=== PATIENT | female | born 1965 | race Two or more races ===

== ENCOUNTER → 2019-09-05 | Day surgery (SDC) | payer MEDICAID ==
[2019-09-02 09:22] LABS: Urine WBC None Seen /hpf (0 - 5)
[2019-09-02 09:25] LABS: Basophils # (auto) 0 uL; Basophils % (auto) 0.9 % (0.0-2.0); Eosinophils # (auto) 0 uL; Eosinophils % (auto) 0.4 % (0.0-7.0); Hematocrit 42.8 % (36.0-46.0); Hemoglobin 14.7 g/dL (12.2-16.2); Lymphocytes # (auto) 1.2 uL; Lymphocytes % (auto) 22.7 % (10.0-50.0); Mean Corpuscular Hemoglobin 30.9 pg (28.0-32.0); Mean Corpuscular Hgb Conc. 34.4 g/dL (32.0-36.0); Mean Corpuscular Volume 89.8 fL (80.0-100.0); Monocytes # (auto) 0.2 uL; Monocytes % (auto) 4.3 % (0.0-12.0); Neutrophils # (auto) 3.9 uL; Neutrophils % (auto) 71.7 % (37.0-80.0); Platelet Count (auto) 266 10^3/uL (140-450); Red Blood Cells 4.77 10^6/uL (4.0-5.20); White Blood Cell 5.5 10^3/uL (4.4-10.8)
[2019-09-02 09:35] LABS: Urine Bacteria NONE SEEN /hpf (None Seen); Urine Blood 1+ /uL (Negative); Urine Specific Gravity 1.006 (1.001-1.035)
[2019-09-02 09:40] LABS: INR 1.01 (0.9-1.15)
[2019-09-02 10:13] LABS: Albumin 4.1 g/dL (3.4-5.0); Calcium 8.9 mg/dL (8.5-10.1); Potassium 4.1 mmol/L (3.5-5.1)
[2019-09-02 10:15] LABS: BUN/Creatinine Ratio 20.3
[2019-09-02 10:17] LABS: Bilirubin, Total 0.6 mg/dL (0.2-1.0); Total Protein 7.4 g/dL (6.4-8.2)
[~2019-09-05] VITALS: Ht 157.5 cm; Wt 72.6 kg
[~2019-09-05] MED LIST: ATOR10TA52 PO; CIPROFLOXACIN 400MG/200ML 200 ML IV ONE; HYDROmorphone HCL 2 MG/ML VL IV PRN; IOHEXOL 300 MG/ML 100ML BOTTLE IJ ONE; LEV50T PO; LIDOCAINE 1% HCL (LOCAL ANESTH.) INJ 20ML MDV ONE; METOCLOPRAMIDE HCL 5MG/ml INJ 2ml VIAL IV PRN; MIDAZOLAM HCL 1MG/1ML-2 ML VIAL ONE; MORPHINE SULFATE 4 MG/ML SYR/VIAL IV PRN; ONDANSETRON HCL 4 MG/2 ML VIAL IV ONE; PROPOFOL 10 MG/ML 20 ML IV ONE; fentaNYL CITRATE 100 MCG/2 ML VL IV PRN; fentaNYL CITRATE 100 MCG/2 ML VL ONE
[2019-09-05 09:05] VITALS: BP 130/73
== END | disposition home or self-care (01) ==
LOC: SUR 07:05
PROVIDERS: ATTEND Urology
DX: N20.0 Calculus of kidney (principal); E78.5 Hyperlipidemia, unspecified; E03.9 Hypothyroidism, unspecified; Z88.1 Allergy status to other antibiotic agents; Z87.891 Personal history of nicotine dependence; Z79.899 Other long term (current) drug therapy
CPT/HCPCS: 36415; 50590; 80053; 81001; 85025; 85610; 85730; 93005; J0744; J2001; J2250; J2405; J2704; J3010; J7030

== ENCOUNTER → 2019-12-19 | Day surgery (SDC) | payer MEDICAID ==
[2019-12-17 09:12] LABS: Basophils # (auto) 0 10 ^3/uL (0-0.2); Basophils % (auto) 0.7 % (0.0-2.0); Eosinophils # (auto) 0.1 10 ^3/uL (0-0.8); Hematocrit 44.2 % (36.0-46.0); Hemoglobin 14.8 g/dL (12.2-16.2); Lymphocytes % (auto) 26.6 % (10.0-50.0); Mean Corpuscular Hgb Conc. 33.4 g/dL (32.0-36.0); Mean Corpuscular Volume 89.9 fL (80.0-100.0); Monocytes # (auto) 0.4 10 ^3/uL (0-1.3); Monocytes % (auto) 5.6 % (0.0-12.0); Neutrophils # (auto) 4.8 10 ^3/uL (1.6-8.6); Neutrophils % (auto) 65.1 % (37.0-80.0); Platelet Count (auto) 258 10^3/uL (140-450); Red Blood Cells 4.91 10^6/uL (4.0-5.20); Red Cell Distribution Width 13.4 % (11.8-14.3); White Blood Cell 7.3 10^3/uL (4.4-10.8)
[2019-12-17 09:18] LABS: Urine Bacteria NONE SEEN /hpf (None Seen); Urine Blood 1+ /uL (Negative); Urine Mucus FEW (None Seen); Urine Specific Gravity 1.013 (1.001-1.035); Urine WBC 3 /hpf (0 - 5)
[2019-12-17 09:34] LABS: Partial Thromboplastin Time 25.8 sec (23.64-32.05)
[2019-12-17 09:37] LABS: Albumin 3.9 g/dL (3.4-5.0); Calcium 8.6 mg/dL (8.5-10.1); Potassium 3.8 mmol/L (3.5-5.1)
[2019-12-17 09:40] LABS: Bilirubin, Total 0.6 mg/dL (0.2-1.0); Total Protein 7.3 g/dL (6.4-8.2)
[~2019-12-19] VITALS: Ht 157.5 cm; Wt 72.6 kg
[~2019-12-19] MED LIST changes: -METOCLOPRAMIDE HCL 5MG/ml INJ 2ml VIAL IV PRN; +MORPHINE SULF INJ 2 MG/ML SYRINGE 1ML IV PRN; -MORPHINE SULFATE 4 MG/ML SYR/VIAL IV PRN; -ONDANSETRON HCL 4 MG/2 ML VIAL IV ONE; +ONDANSETRON HCL 4 MG/2 ML VIAL IV PRN; +ONDANSETRON HCL 4 MG/2 ML VIAL ONE; +SODIUM CHLORIDE LOCK 10 ML ONE; -fentaNYL CITRATE 100 MCG/2 ML VL IV PRN
[2019-12-19 14:27] VITALS: BP 124/73
== END | disposition home or self-care (01) ==
LOC: SUR 08:35
PROVIDERS: ATTEND Urology
DX: N20.0 Calculus of kidney (principal); E66.9 Obesity, unspecified; E07.9 Disorder of thyroid, unspecified; Z88.1 Allergy status to other antibiotic agents; Z68.29 Body mass index [BMI] 29.0-29.9, adult; Z98.890 Other specified postprocedural states; Z11.59 Encounter for screening for other viral diseases
CPT/HCPCS: 36415; 50590; 74176; 80053; 81001; 85025; 85610; 85730; J0744; J2001; J2250; J2405; J2704; J3010; Q9967; U0003

== ENCOUNTER → 2020-05-14 | Day surgery (SDC) | payer MEDICAID ==
[2020-05-07 12:35] LABS: Basophils # (auto) 0.1 10 ^3/uL (0-0.2); Basophils % (auto) 0.8 % (0.0-2.0); Eosinophils # (auto) 0.1 10 ^3/uL (0-0.8); Eosinophils % (auto) 0.7 % (0.0-7.0); Hematocrit 43.4 % (36.0-46.0); Hemoglobin 14.7 g/dL (12.2-16.2); Lymphocytes # (auto) 2.2 10 ^3/uL (0.4-5.4); Lymphocytes % (auto) 30.5 % (10.0-50.0); Mean Corpuscular Hemoglobin 30.8 pg (28.0-32.0); Mean Corpuscular Hgb Conc. 33.8 g/dL (32.0-36.0); Mean Corpuscular Volume 91.2 fL (80.0-100.0); Monocytes # (auto) 0.5 10 ^3/uL (0-1.3); Monocytes % (auto) 6.3 % (0.0-12.0); Neutrophils # (auto) 4.5 10 ^3/uL (1.6-8.6); Neutrophils % (auto) 61.7 % (37.0-80.0); Nucleated Red Blood Cells % 0.1 %; Platelet Count (auto) 283 10^3/uL (140-450); Red Blood Cells 4.76 10^6/uL (4.0-5.20); Red Cell Distribution Width 13.8 % (11.8-14.3); White Blood Cell 7.3 10^3/uL (4.4-10.8)
[2020-05-07 12:42] LABS: Potassium 3.8 mmol/L (3.5-5.1)
[2020-05-07 12:43] LABS: INR 0.96 (0.9-1.15); Partial Thromboplastin Time 24.3 sec (23.0-31.2)
[2020-05-07 12:59] LABS: Albumin 3.9 g/dL (3.4-5.0); BUN/Creatinine Ratio 20.8; Bilirubin, Total 0.5 mg/dL (0.2-1.0); Calcium 9.1 mg/dL (8.5-10.1)
[2020-05-07 13:04] LABS: Urine Bacteria NONE SEEN /hpf (None Seen); Urine Blood 2+ /uL (Negative); Urine Mucus FEW (None Seen); Urine WBC <1 /hpf (0 - 5)
[~2020-05-14] VITALS: Ht 157.5 cm; Wt 73.9 kg
[~2020-05-14] MED LIST changes: -HYDROmorphone HCL 2 MG/ML VL IV PRN; -LIDOCAINE 1% HCL (LOCAL ANESTH.) INJ 20ML MDV ONE; -MORPHINE SULF INJ 2 MG/ML SYRINGE 1ML IV PRN; -ONDANSETRON HCL 4 MG/2 ML VIAL IV PRN; -ONDANSETRON HCL 4 MG/2 ML VIAL ONE; -SODIUM CHLORIDE LOCK 10 ML ONE
[2020-05-14 14:25] VITALS: BP 129/72
== END | disposition home or self-care (01) ==
LOC: SUR 10:10
PROVIDERS: ATTEND Urology
DX: N20.0 Calculus of kidney (principal); F17.200 Nicotine dependence, unspecified, uncomplicated; E66.9 Obesity, unspecified; Z68.29 Body mass index [BMI] 29.0-29.9, adult; Z88.1 Allergy status to other antibiotic agents; Z98.890 Other specified postprocedural states; Z20.828 Contact with and (suspected) exposure to other viral communicable diseases; Z79.899 Other long term (current) drug therapy
CPT/HCPCS: 36415; 50590; 52005; 74420; 80053; 81001; 85025; 85610; 85730; J0744; J2250; J2704; J3010; Q9967; U0003

== ENCOUNTER 2023-04-17 07:30 | Inpatient (IN) | payer MEDICAID ==
[~2023-04-17] VITALS: Ht 157.5 cm; Wt 71.8 kg
[~2023-04-17 07:30] MED LIST changes: -CIPROFLOXACIN 400MG/200ML 200 ML IV ONE; -IOHEXOL 300 MG/ML 100ML BOTTLE IJ ONE; -MIDAZOLAM HCL 1MG/1ML-2 ML VIAL ONE; -PROPOFOL 10 MG/ML 20 ML IV ONE; -fentaNYL CITRATE 100 MCG/2 ML VL ONE
[2023-04-17 08:05] LABS: Urine Bacteria NONE SEEN /hpf (None Seen); Urine Blood 2+ /uL (Negative); Urine Clarity Clear (Clear); Urine Color Colorless (Yellow); Urine Protein, UAD Negative (Negative); Urine Specific Gravity 1.007 (1.001-1.035); Urine Urobilinogen Normal (Negative); Urine WBC <1 /hpf (0 - 5); Urine pH 6.5 (5.0-8.0)
[2023-04-17 08:24] LABS: Basophils # (auto) 0 10 ^3/uL (0-0.2); Basophils % (auto) 0.3 % (0.0-2.0); Eosinophils # (auto) 0 10 ^3/uL (0-0.8); Eosinophils % (auto) 0.2 % (0.0-7.0); Hematocrit 42.7 % (36.0-46.0); Hemoglobin 14.4 g/dL (12.2-16.2); Lymphocytes # (auto) 1.5 10 ^3/uL (0.4-5.4); Lymphocytes % (auto) 10.3 % (10.0-50.0); Mean Corpuscular Hemoglobin 29.9 pg (28.0-32.0); Mean Corpuscular Hgb Conc. 33.6 g/dL (32.0-36.0); Mean Corpuscular Volume 89.1 fL (80.0-100.0); Monocytes % (auto) 7.2 % (0.0-12.0); Neutrophils # (auto) 11.7 10 ^3/uL (1.6-8.6); Red Cell Distribution Width 13.3 % (11.8-14.3); White Blood Cell 14.3 10^3/uL (4.4-10.8)
[2023-04-17 08:37] LABS: Alanine Aminotransferase 16 U/L (7-40); Albumin 4.5 g/dL (3.2-4.8); Alkaline Phosphatase 107 U/L (46-116); Aspartate Aminotransferase 32 U/L (13-40); BUN/Creatinine Ratio 10.6 (10.0-20.0); Bilirubin, Total 1.4 mg/dL (0.2-1.0); Blood Urea Nitrogen 7 mg/dL (9-23); Calcium 9.3 mg/dL (8.5-10.1); Carbon Dioxide 26 mmol/L (20-30); Glucose 120 mg/dL (74-106); Total Protein 7.4 g/dL (5.7-8.2)
[2023-04-17] MEDS ORDERED: metroNIDAZOLE 500MG/100ML 100 ML IV ONE ×2 (09:00→13:45)
[2023-04-17] MEDS ORDERED: levoFLOXacin 500MG 100 ML IV ONE (09:00)
[2023-04-17] MEDS ORDERED: SODIUM CHLORIDE 0.9% 1,000 ML IV ONE ×3 (09:15)
[2023-04-17 10:03] LABS: Anion Gap 7 (5-15); Chloride 104 mmol/L (98-107); Potassium 3.6 mmol/L (3.5-5.1); Sodium 137 mmol/L (136-145)
[2023-04-17 10:10] LABS: Lipase 40 U/L (12-53)
[2023-04-17] MEDS ORDERED: NITROGLYCERIN 0.4 MG SL TAB SL PRN (12:00)
[2023-04-17] MEDS ORDERED: MORPHINE SULFATE INJ 2 MG/ml SYRG IV PRN ×2 (12:00)
[2023-04-17] MEDS ORDERED: MORPHINE SULFATE 4 MG/ML SYR/VIAL IV ONE (12:15)
[2023-04-17] MEDS: SODIUM CHLOR 0.9% PF (SALINE LOCK) 10ML VIAL/SYR IV SCH ×2 (12:26→21:35)
[2023-04-17] MEDS ORDERED: HYDROmorphone HCL 2 MG/ML VL/or syr IV ONE (15:30)
[2023-04-17] MEDS ORDERED: HYDROmorphone HCL 2 MG/ML VL/or syr IV PRN (16:30)
[2023-04-17 17:38] VITALS: BP 144/62; PULSE 98; RESP 14; TEMP 98.3; O2SAT 95
[2023-04-17 17:45] VITALS: BP 144/62; PULSE 98; RESP 14; TEMP 98.3; O2SAT 95
[2023-04-17] MEDS: ONDANSETRON HCL 4 MG/2 ML VIAL IV PRN (18:06)
[2023-04-17] MEDS ORDERED: MELO-335 PO (18:08)
[2023-04-17] MEDS ORDERED: GABA-1250 PO (18:08)
[2023-04-17 20:00] VITALS: BP 124/64; PULSE 81; PULSE 82; RESP 18; TEMP 97.7; O2SAT 97
[2023-04-17] MEDS: metroNIDAZOLE 500MG/100ML 100 ML IV SCH (21:00)
[2023-04-17 22:00] VITALS: BP 124/64; PULSE 81; RESP 18; TEMP 97.7; O2SAT 97
[2023-04-18 05:00] VITALS: BP 141/53; PULSE 87; RESP 18; TEMP 98.4; O2SAT 97
[2023-04-18] MEDS: metroNIDAZOLE 500MG/100ML 100 ML IV SCH ×3 (05:39→20:53)
[2023-04-18] MEDS: SODIUM CHLOR 0.9% PF (SALINE LOCK) 10ML VIAL/SYR IV SCH ×3 (05:42→20:59)
[2023-04-18] MEDS: HYDROmorphone HCL 2 MG/ML VL/or syr IV PRN ×2 (06:41→11:25)
[2023-04-18] MEDS: ONDANSETRON HCL 4 MG/2 ML VIAL IV PRN ×3 (06:47→16:18)
[2023-04-18 08:00] VITALS: PULSE 80
[2023-04-18 08:45] VITALS: BP 119/64; PULSE 67; RESP 19; TEMP 97.8; O2SAT 96
[2023-04-18] MEDS: cefTRIAXone 1GM/50ML D5W 50 ML IV SCH (10:00)
[2023-04-18] MEDS ORDERED: D5W/SOD CHL 0.2% 1,000 ML IV SCH (10:30)
[2023-04-18] MEDS ORDERED: D5W/SOD CHL 0.2% 1,000 ML IV ONE (10:30)
[2023-04-18] MEDS ORDERED: ATOR20TA50 PO (15:54)
[2023-04-18] MEDS ORDERED: LEVO50TA7 PO (15:54)
[2023-04-18] MEDS ORDERED: HYDR-4902 PO (15:54)
[2023-04-18] MEDS ORDERED: MEPERIDINE HCL (25 MG/ML) 1ML VIAL IM PRN (19:15)
[2023-04-18 20:00] VITALS: BP 128/71; PULSE 83; PULSE 85; RESP 18; TEMP 97.8; O2SAT 97
[2023-04-18 22:00] VITALS: BP 128/71; PULSE 65; RESP 19; TEMP 97.8; O2SAT 96
[2023-04-19] VITALS (7 sets, daily range): BP systolic 132–157; BP diastolic 63–97; PULSE 63–84; RESP 14–20; TEMP 97.3–98.4; O2SAT 94–98
[2023-04-19] MEDS: metroNIDAZOLE 500MG/100ML 100 ML IV SCH ×3 (05:46→21:17)
[2023-04-19] MEDS: SODIUM CHLOR 0.9% PF (SALINE LOCK) 10ML VIAL/SYR IV SCH ×3 (05:47→21:27)
[2023-04-19 06:09] LABS: Basophils # (auto) 0 10 ^3/uL (0-0.2); Basophils % (auto) 0.2 % (0.0-2.0); Eosinophils # (auto) 0 10 ^3/uL (0-0.8); Eosinophils % (auto) 0.4 % (0.0-7.0); Hematocrit 39.8 % (36.0-46.0); Hemoglobin 13.4 g/dL (12.2-16.2); Lymphocytes # (auto) 1.4 10 ^3/uL (0.4-5.4); Lymphocytes % (auto) 14.5 % (10.0-50.0); Mean Corpuscular Hemoglobin 30.2 pg (28.0-32.0); Mean Corpuscular Hgb Conc. 33.8 g/dL (32.0-36.0); Mean Corpuscular Volume 89.4 fL (80.0-100.0); Monocytes # (auto) 0.7 10 ^3/uL (0-1.3); Monocytes % (auto) 7.1 % (0.0-12.0); Neutrophils # (auto) 7.8 10 ^3/uL (1.6-8.6); Neutrophils % (auto) 77.8 % (37.0-80.0); Red Blood Cells 4.45 10^6/uL (4.0-5.20)
[2023-04-19 06:12] LABS: Chloride 107 mmol/L (98-107); Potassium 3.7 mmol/L (3.5-5.1); Sodium 140 mmol/L (136-145)
[2023-04-19 06:13] LABS: Anion Gap 9 (5-15); Carbon Dioxide 24 mmol/L (20-30)
[2023-04-19 06:14] LABS: Calcium 9.1 mg/dL (8.5-10.1)
[2023-04-19 06:18] LABS: BUN/Creatinine Ratio 13.2 (10.0-20.0); Blood Urea Nitrogen 7 mg/dL (9-23); Glucose 93 mg/dL (74-106)
[2023-04-19] MEDS: cefTRIAXone 1GM/50ML D5W 50 ML IV SCH (09:29)
[2023-04-19] MEDS ORDERED: LEVO100T8 PO (10:12)
[2023-04-19] MEDS: D5W/SOD CHLO 0.9% 1,000 ML IV SCH ×2 (15:30→17:30)
[2023-04-20] VITALS (7 sets, daily range): BP systolic 131–173; BP diastolic 70–85; PULSE 63–85; RESP 14–20; TEMP 97.7–98.4; O2SAT 94–97
[2023-04-20] MEDS: D5W/SOD CHLO 0.9% 1,000 ML IV SCH ×2 (00:20→13:40)
[2023-04-20] MEDS: metroNIDAZOLE 500MG/100ML 100 ML IV SCH ×3 (05:06→21:25)
[2023-04-20] MEDS: SODIUM CHLOR 0.9% PF (SALINE LOCK) 10ML VIAL/SYR IV SCH ×3 (05:13→21:32)
[2023-04-20 06:57] LABS: Basophils # (auto) 0 10 ^3/uL (0-0.2); Basophils % (auto) 0.6 % (0.0-2.0); Eosinophils # (auto) 0.1 10 ^3/uL (0-0.8); Eosinophils % (auto) 0.8 % (0.0-7.0); Hematocrit 40.1 % (36.0-46.0); Hemoglobin 13.8 g/dL (12.2-16.2); Lymphocytes # (auto) 1.4 10 ^3/uL (0.4-5.4); Lymphocytes % (auto) 19.6 % (10.0-50.0); Mean Corpuscular Hemoglobin 30.4 pg (28.0-32.0); Mean Corpuscular Hgb Conc. 34.4 g/dL (32.0-36.0); Mean Corpuscular Volume 88.3 fL (80.0-100.0); Monocytes # (auto) 0.6 10 ^3/uL (0-1.3); Monocytes % (auto) 8.4 % (0.0-12.0); Neutrophils # (auto) 5.1 10 ^3/uL (1.6-8.6); Neutrophils % (auto) 70.6 % (37.0-80.0); Nucleated Red Blood Cells % 0.1 %; Red Blood Cells 4.54 10^6/uL (4.0-5.20); Red Cell Distribution Width 13.1 % (11.8-14.3); White Blood Cell 7.3 10^3/uL (4.4-10.8)
[2023-04-20 06:59] LABS: Anion Gap 9 (5-15); Calcium 9.1 mg/dL (8.5-10.1); Carbon Dioxide 24 mmol/L (20-30); Chloride 107 mmol/L (98-107); Potassium 3.6 mmol/L (3.5-5.1); Sodium 140 mmol/L (136-145)
[2023-04-20 07:04] LABS: BUN/Creatinine Ratio 16.7 (10.0-20.0); Blood Urea Nitrogen 8 mg/dL (9-23); Glucose 101 mg/dL (74-106)
[2023-04-20] MEDS: cefTRIAXone 1GM/50ML D5W 50 ML IV SCH (09:18)
[2023-04-20] MEDS ORDERED: OMNIPAQUE 12mg/ml 500ml ORAL SOLUTION PO ONE (10:18)
[2023-04-20] MEDS ORDERED: IOHEXOL 300 MG/ML 100ML BOTTLE IJ ONE (12:32)
[2023-04-21] MEDS: D5W/SOD CHLO 0.9% 1,000 ML IV SCH ×3 (03:00→23:44)
[2023-04-21 05:00] VITALS: BP 145/71; PULSE 81; RESP 14; TEMP 98; O2SAT 95
[2023-04-21] MEDS: metroNIDAZOLE 500MG/100ML 100 ML IV SCH ×3 (05:16→22:42)
[2023-04-21] MEDS: SODIUM CHLOR 0.9% PF (SALINE LOCK) 10ML VIAL/SYR IV SCH ×3 (05:32→22:55)
[2023-04-21 07:41] LABS: Basophils # (auto) 0.1 10 ^3/uL (0-0.2); Basophils % (auto) 0.7 % (0.0-2.0); Eosinophils # (auto) 0 10 ^3/uL (0-0.8); Eosinophils % (auto) 0.3 % (0.0-7.0); Hematocrit 43.5 % (36.0-46.0); Lymphocytes # (auto) 1.6 10 ^3/uL (0.4-5.4); Lymphocytes % (auto) 17.5 % (10.0-50.0); Mean Corpuscular Hemoglobin 30.3 pg (28.0-32.0); Mean Corpuscular Hgb Conc. 34.6 g/dL (32.0-36.0); Mean Corpuscular Volume 87.7 fL (80.0-100.0); Monocytes # (auto) 0.5 10 ^3/uL (0-1.3); Monocytes % (auto) 5.8 % (0.0-12.0); Neutrophils # (auto) 7.1 10 ^3/uL (1.6-8.6); Neutrophils % (auto) 75.7 % (37.0-80.0); Red Blood Cells 4.96 10^6/uL (4.0-5.20); Red Cell Distribution Width 12.9 % (11.8-14.3); White Blood Cell 9.4 10^3/uL (4.4-10.8)
[2023-04-21 07:43] LABS: INR 1.08 (0.9-1.15); Partial Thromboplastin Time 26.8 SEC (24.5-34.5); Prothrombin Time 11.3 sec (9.3-11.8)
[2023-04-21 07:45] LABS: Chloride 106 mmol/L (98-107); Potassium 3.3 mmol/L (3.5-5.1); Sodium 140 mmol/L (136-145)
[2023-04-21 07:46] LABS: Anion Gap 12 (5-15); Calcium 9.5 mg/dL (8.5-10.1); Carbon Dioxide 22 mmol/L (20-30)
[2023-04-21 07:51] LABS: BUN/Creatinine Ratio 16.1 (10.0-20.0); Blood Urea Nitrogen 9 mg/dL (9-23); Glucose 70 mg/dL (74-106)
[2023-04-21 08:00] VITALS: BP 146/72; PULSE 76; PULSE 77; PULSE 78; RESP 18; TEMP 98.4; O2SAT 100; O2SAT 97
[2023-04-21] MEDS: cefTRIAXone 1GM/50ML D5W 50 ML IV SCH (09:22)
[2023-04-21] MEDS ORDERED: LIDOCAINE 2%HCL (LOCAL ANESTH.) INJ 10ml MDV ONE (09:54)
[2023-04-21] MEDS ORDERED: fentaNYL CITRATE 100 MCG/2 ML VL ONE (10:04)
[2023-04-21] MEDS ORDERED: MIDAZOLAM HCL 2MG/2ML 2ml VIAL (1mg/ml) ONE (10:04)
[2023-04-21] MEDS ORDERED: MIDAZOLAM HCL 2MG/2ML 2ml VIAL (1mg/ml) IV ONE (10:15)
[2023-04-21] MEDS ORDERED: fentaNYL CITRATE 100 MCG/2 ML VL IV ONE (10:15)
[2023-04-21] MEDS: LEVOTHYROXINE SODIUM 100 MCG/5 ML INJ IV SCH (12:35)
[2023-04-21 13:00] VITALS: BP 150/80; PULSE 77; RESP 18; TEMP 98.7; O2SAT 97
[2023-04-21 17:00] VITALS: BP 140/77; PULSE 85; RESP 19; TEMP 98.4; O2SAT 98
[2023-04-21 20:00] VITALS: PULSE 77; RESP 18
[2023-04-21 22:00] VITALS: BP 139/62; PULSE 68; RESP 14; TEMP 98.5; O2SAT 97
[2023-04-21] MEDS: MORPHINE SULFATE INJ 2 MG/ml SYRG IV PRN (22:48)
[2023-04-22] VITALS (7 sets, daily range): BP systolic 136–144; BP diastolic 61–75; PULSE 61–70; RESP 14–17; TEMP 97.9–99.1; O2SAT 95–98
[2023-04-22] MEDS: metroNIDAZOLE 500MG/100ML 100 ML IV SCH ×3 (05:17→21:42)
[2023-04-22] MEDS: SODIUM CHLOR 0.9% PF (SALINE LOCK) 10ML VIAL/SYR IV SCH ×3 (05:24→21:42)
[2023-04-22 05:46] LABS: Basophils # (auto) 0.1 10 ^3/uL (0-0.2); Basophils % (auto) 0.7 % (0.0-2.0); Eosinophils # (auto) 0 10 ^3/uL (0-0.8); Eosinophils % (auto) 0.3 % (0.0-7.0); Hematocrit 43.7 % (36.0-46.0); Hemoglobin 14.7 g/dL (12.2-16.2); Lymphocytes # (auto) 1.9 10 ^3/uL (0.4-5.4); Lymphocytes % (auto) 19.6 % (10.0-50.0); Mean Corpuscular Hemoglobin 30.2 pg (28.0-32.0); Mean Corpuscular Hgb Conc. 33.7 g/dL (32.0-36.0); Mean Corpuscular Volume 89.5 fL (80.0-100.0); Monocytes # (auto) 0.7 10 ^3/uL (0-1.3); Monocytes % (auto) 7.5 % (0.0-12.0); Neutrophils # (auto) 6.9 10 ^3/uL (1.6-8.6); Neutrophils % (auto) 71.9 % (37.0-80.0); Red Blood Cells 4.88 10^6/uL (4.0-5.20); White Blood Cell 9.6 10^3/uL (4.4-10.8)
[2023-04-22 06:02] LABS: Chloride 107 mmol/L (98-107); Potassium 3.1 mmol/L (3.5-5.1); Sodium 139 mmol/L (136-145)
[2023-04-22 06:03] LABS: Anion Gap 10 (5-15); Carbon Dioxide 22 mmol/L (20-30)
[2023-04-22 06:04] LABS: Calcium 8.7 mg/dL (8.7-10.4)
[2023-04-22 06:08] LABS: BUN/Creatinine Ratio 11.3 (10.0-20.0); Blood Urea Nitrogen 6 mg/dL (9-23); Glucose 104 mg/dL (74-106)
[2023-04-22] MEDS ORDERED: LEVOTHYROXINE SODIUM 100 MCG TAB PO SCH (07:00)
[2023-04-22] MEDS: cefTRIAXone 1GM/50ML D5W 50 ML IV SCH (09:14)
[2023-04-22] MEDS: LEVOTHYROXINE SODIUM 100 MCG/5 ML INJ IV SCH (09:14)
[2023-04-22] MEDS: D5W/SOD CHLO 0.9% 1,000 ML IV SCH (19:00)
[2023-04-22] MEDS: MORPHINE SULFATE INJ 2 MG/ml SYRG IV PRN (20:44)
[2023-04-23] VITALS (7 sets, daily range): BP systolic 111–134; BP diastolic 59–75; PULSE 64–85; RESP 14–17; TEMP 98–98.6; O2SAT 95–96
[2023-04-23] MEDS: metroNIDAZOLE 500MG/100ML 100 ML IV SCH ×3 (05:30→22:06)
[2023-04-23] MEDS: SODIUM CHLOR 0.9% PF (SALINE LOCK) 10ML VIAL/SYR IV SCH ×3 (05:30→22:06)
[2023-04-23] MEDS: D5W/SOD CHLO 0.9% 1,000 ML IV SCH ×2 (08:20→21:40)
[2023-04-23] MEDS: LEVOTHYROXINE SODIUM 100 MCG/5 ML INJ IV SCH (10:18)
[2023-04-23] MEDS: cefTRIAXone 1GM/50ML D5W 50 ML IV SCH (10:18)
[2023-04-23] MEDS ORDERED: POTASSIUM CHLORIDE 40 MEQ in D5W 5% 1,000 ML IV SCH ×2 (11:15→11:45)
[2023-04-23 12:06] LABS: Basophils # (auto) 0 10 ^3/uL (0-0.2); Basophils % (auto) 0.5 % (0.0-2.0); Eosinophils # (auto) 0 10 ^3/uL (0-0.8); Eosinophils % (auto) 0.3 % (0.0-7.0); Hematocrit 41.3 % (36.0-46.0); Hemoglobin 14.4 g/dL (12.2-16.2); Lymphocytes # (auto) 1.5 10 ^3/uL (0.4-5.4); Mean Corpuscular Hemoglobin 30.3 pg (28.0-32.0); Mean Corpuscular Hgb Conc. 34.9 g/dL (32.0-36.0); Mean Corpuscular Volume 86.7 fL (80.0-100.0); Monocytes # (auto) 0.5 10 ^3/uL (0-1.3); Monocytes % (auto) 5.2 % (0.0-12.0); Neutrophils # (auto) 7.7 10 ^3/uL (1.6-8.6); Nucleated Red Blood Cells % 0.1 %; Red Blood Cells 4.77 10^6/uL (4.0-5.20); Red Cell Distribution Width 12.8 % (11.8-14.3); White Blood Cell 9.7 10^3/uL (4.4-10.8)
[2023-04-23 12:21] LABS: Albumin 3.7 g/dL (3.2-4.8); Alkaline Phosphatase 79 U/L (46-116); Anion Gap 11 (5-15); Aspartate Aminotransferase 20 U/L (13-40); Bilirubin, Total 0.6 mg/dL (0.2-1.0); Calcium 8.8 mg/dL (8.5-10.1); Carbon Dioxide 23 mmol/L (20-30); Chloride 105 mmol/L (98-107); Glucose 81 mg/dL (74-106); Potassium 3.1 mmol/L (3.5-5.1); Sodium 139 mmol/L (136-145); Total Protein 6.4 g/dL (5.7-8.2)
[2023-04-23 12:23] LABS: Alanine Aminotransferase < 9 U/L (7-40); Blood Urea Nitrogen < 5 mg/dL (9-23)
[2023-04-23 13:41] LABS: Magnesium 1.9 mg/dL (1.6-2.6)
[2023-04-23] MEDS ORDERED: POTASSIUM CHL 20MEQ/100ML 100 ML IV ONE (14:00)
[2023-04-23] MEDS: MORPHINE SULFATE INJ 2 MG/ml SYRG IV PRN (22:06)
[2023-04-24] VITALS (7 sets, daily range): BP systolic 120–135; BP diastolic 57–81; PULSE 52–85; RESP 14–17; TEMP 97.6–98.4; O2SAT 94–97
[2023-04-24] MEDS: metroNIDAZOLE 500MG/100ML 100 ML IV SCH ×3 (05:31→22:06)
[2023-04-24] MEDS: SODIUM CHLOR 0.9% PF (SALINE LOCK) 10ML VIAL/SYR IV SCH ×3 (05:31→22:06)
[2023-04-24 05:47] LABS: Basophils # (auto) 0.1 10 ^3/uL (0-0.2); Basophils % (auto) 0.7 % (0.0-2.0); Eosinophils # (auto) 0.1 10 ^3/uL (0-0.8); Eosinophils % (auto) 0.7 % (0.0-7.0); Hemoglobin 14.3 g/dL (12.2-16.2); Lymphocytes # (auto) 1.7 10 ^3/uL (0.4-5.4); Lymphocytes % (auto) 18.8 % (10.0-50.0); Mean Corpuscular Hgb Conc. 33.9 g/dL (32.0-36.0); Mean Corpuscular Volume 88.5 fL (80.0-100.0); Monocytes # (auto) 0.5 10 ^3/uL (0-1.3); Monocytes % (auto) 5.5 % (0.0-12.0); Neutrophils # (auto) 6.9 10 ^3/uL (1.6-8.6); Neutrophils % (auto) 74.3 % (37.0-80.0); Red Blood Cells 4.75 10^6/uL (4.0-5.20); White Blood Cell 9.2 10^3/uL (4.4-10.8)
[2023-04-24 06:04] LABS: Albumin 3.7 g/dL (3.2-4.8); Alkaline Phosphatase 86 U/L (46-116); Anion Gap 10 (5-15); Aspartate Aminotransferase 13 U/L (13-40); BUN/Creatinine Ratio 8.9 (10.0-20.0); Bilirubin, Total 0.5 mg/dL (0.2-1.0); Blood Urea Nitrogen 5 mg/dL (9-23); Calcium 8.7 mg/dL (8.7-10.4); Carbon Dioxide 22 mmol/L (20-30); Chloride 108 mmol/L (98-107); Glucose 84 mg/dL (74-106); Potassium 3.2 mmol/L (3.5-5.1); Sodium 140 mmol/L (136-145); Total Protein 6.2 g/dL (5.7-8.2)
[2023-04-24 06:26] LABS: Alanine Aminotransferase < 9 U/L (7-40)
[2023-04-24] MEDS: LEVOTHYROXINE SODIUM 100 MCG/5 ML INJ IV SCH (10:01)
[2023-04-24] MEDS: cefTRIAXone 1GM/50ML D5W 50 ML IV SCH (10:01)
[2023-04-24] MEDS ORDERED: POTASSIUM CHL 20MEQ/100ML 100 ML IV SCH ×2 (10:30→10:45)
[2023-04-24] MEDS: D5W/SOD CHLO 0.9% 1,000 ML IV SCH (11:00)
[2023-04-24] MEDS ORDERED: POTASSIUM CHL 20MEQ/100ML 100 ML IV ONE (11:15)
[2023-04-25] MEDS: D5W/SOD CHLO 0.9% 1,000 ML IV SCH (00:20)
[2023-04-25 05:00] VITALS: BP 122/70; PULSE 76; RESP 17; TEMP 98.5; O2SAT 96
[2023-04-25] MEDS: SODIUM CHLOR 0.9% PF (SALINE LOCK) 10ML VIAL/SYR IV SCH ×2 (06:02→14:09)
[2023-04-25] MEDS: metroNIDAZOLE 500MG/100ML 100 ML IV SCH (06:03)
[2023-04-25 08:00] VITALS: PULSE 75
[2023-04-25 08:46] VITALS: BP 122/68; PULSE 78; RESP 16; TEMP 98.7; O2SAT 96
[2023-04-25] MEDS ORDERED: LEVOTHYROXINE SODIUM 100 MCG TAB PO ONE (09:45)
[2023-04-25] MEDS: cefTRIAXone 1GM/50ML D5W 50 ML IV SCH (10:09)
[2023-04-25 10:40] LABS: Basophils # (auto) 0.1 10 ^3/uL (0-0.2); Eosinophils # (auto) 0 10 ^3/uL (0-0.8); Eosinophils % (auto) 0.5 % (0.0-7.0); Hematocrit 39.3 % (36.0-46.0); Hemoglobin 13.5 g/dL (12.2-16.2); Lymphocytes # (auto) 1.4 10 ^3/uL (0.4-5.4); Lymphocytes % (auto) 17.6 % (10.0-50.0); Mean Corpuscular Hemoglobin 30.1 pg (28.0-32.0); Mean Corpuscular Hgb Conc. 34.5 g/dL (32.0-36.0); Mean Corpuscular Volume 87.3 fL (80.0-100.0); Monocytes # (auto) 0.5 10 ^3/uL (0-1.3); Monocytes % (auto) 6.8 % (0.0-12.0); Neutrophils # (auto) 5.7 10 ^3/uL (1.6-8.6); Neutrophils % (auto) 74.1 % (37.0-80.0); Red Cell Distribution Width 13.4 % (11.8-14.3); White Blood Cell 7.7 10^3/uL (4.4-10.8)
[2023-04-25 10:50] LABS: Chloride 108 mmol/L (98-107); Potassium 3.3 mmol/L (3.5-5.1); Sodium 139 mmol/L (136-145)
[2023-04-25 10:51] LABS: Anion Gap 6 (5-15); Calcium 8.4 mg/dL (8.5-10.1); Carbon Dioxide 25 mmol/L (20-30)
[2023-04-25 10:56] LABS: Glucose 192 mg/dL (74-106)
[2023-04-25 10:58] LABS: BUN/Creatinine Ratio 8.2 (10.0-20.0); Blood Urea Nitrogen < 5 mg/dL (9-23)
[2023-04-25 12:34] VITALS: BP 102/47; PULSE 68; RESP 16; TEMP 98.2; O2SAT 94
[2023-04-25] MEDS ORDERED: CEPH250C PO (15:57)
[2023-04-25 16:39] VITALS: BP 117/65; PULSE 80; RESP 17; TEMP 98.7; O2SAT 96
[2023-04-26] MEDS ORDERED: LEVOTHYROXINE SODIUM 100 MCG TAB PO SCH (07:00)
== END 2023-04-25 18:10 | disposition home or self-care (01) | DRG 720 ==
LOC: ER 07:30 → TELE 11:54 → TELE-WESTW 17:12
PROVIDERS: ADMIT Internal Medicine Pulmonary Disease; ATTEND Student in an Organized Health Care Education/Training Program
PROC: 0W9G30Z Drainage of Peritoneal Cavity with Drainage Device, Percutaneous Approach (ICD-10-PCS; 2023-04-21)
PROC: 05HB33Z Insertion of Infusion Device into Right Basilic Vein, Percutaneous Approach (ICD-10-PCS; principal; 2023-04-23)
PROC: B54MZZA Ultrasonography of Right Upper Extremity Veins, Guidance (ICD-10-PCS; 2023-04-23)
DX: A41.9 Sepsis, unspecified organism (principal); G31.89 Other specified degenerative diseases of nervous system; K57.20 Diverticulitis of large intestine with perforation and abscess without bleeding; E03.9 Hypothyroidism, unspecified; N20.0 Calculus of kidney; R31.9 Hematuria, unspecified; L92.8 Other granulomatous disorders of the skin and subcutaneous tissue
CPT/HCPCS: 36415; 74150; 74176; 74177; 75989; 80048; 80053; 81001; 83605; 83690; 83735; 85025; 85610; 85730; 87040; 87077; 87186; 87205; 96365; G0378; J0696; J1956; J2001; J2250; J2405; J3480; J3490; J7042